=== PATIENT | female | born 1955 | race Caucasian/White ===

== ENCOUNTER 2016-12-28 15:11 | Emergency (ER) | payer BC ==
[~2016-12-28] VITALS: Ht 160 cm; Wt 90.1 kg
[~2016-12-28 15:11] MED LIST: ALEVE COLD & S1 EACH PO; ALLEGRA60 MG PO; BUPROPION XL300 MG PO; BUSPAR10 MG PO; CALCIUM 600 +1 EAC2 PO; DAILY VITE1 EAC1 PO; EFFEXOR XR150 MG PO; FLONASE16 G1 BOTH NARES; GEODON40 MG PO; LORAZEPAM0.5 MG PO; NAPROXEN500 MG PO; VENLAFAXINE HC150 M1 PO; WELLBUTRIN XL300 MG PO
[2016-12-28 17:31] VITALS: BP 144/82
== END 2016-12-28 17:31 | disposition home or self-care (01) ==
LOC: EME 15:11
DX: I80.01 Phlebitis and thrombophlebitis of superficial vessels of right lower extremity (principal)
CPT/HCPCS: 93971; 99281; 99283